=== PATIENT | female | born 2000 ===

== ENCOUNTER 2020-01-04 20:28 | Inpatient (IN) | payer OTHER ==
[~2020-01-04] VITALS: Ht 160 cm; Wt 59.0 kg
[2020-01-07] MEDS ORDERED: LEVO-T25 MCG PO (08:04)
[2020-01-07] MEDS ORDERED: PRENATAL + DHA1 EAC1 PO (08:05)
[2020-01-08] MEDS ORDERED: LEVOTHYROXINE25 MCG PO (08:23)
[2020-01-08] MEDS ORDERED: AMPICILLIN TRI500 MG PO (08:23)
== END 2020-01-08 14:25 | disposition home or self-care (01) | DRG 833 ==
LOC: LDR 20:28
PROVIDERS: ADMIT Specialist; ATTEND Specialist
PROC: BY4CZZZ Ultrasonography of Second Trimester, Single Fetus (ICD-10-PCS; principal; 2020-01-04)
PROC: 4A033R1 Measurement of Arterial Saturation, Peripheral, Percutaneous Approach (ICD-10-PCS; 2020-01-04)
PROC: 4A1HXCZ Monitoring of Products of Conception, Cardiac Rate, External Approach (ICD-10-PCS; 2020-01-04)
PROC: 8E0ZXY6 Isolation (ICD-10-PCS; 2020-01-04)
DX: O26.892 Other specified pregnancy related conditions, second trimester (principal); J02.9 Acute pharyngitis, unspecified; J06.9 Acute upper respiratory infection, unspecified; R50.9 Fever, unspecified; Z03.818 Encounter for observation for suspected exposure to other biological agents ruled out; Z3A.24 24 weeks gestation of pregnancy

== ENCOUNTER 2020-02-01 10:04 | Outpatient (CLI) | payer OTHER ==
[~2020-02-01 10:04] MED LIST: AMPICILLIN TRI500 MG PO; LEVO-T25 MCG PO; LEVOTHYROXINE25 MCG PO; PRENATAL + DHA1 EAC1 PO
== END 2020-02-01 11:45 | disposition home or self-care (01) ==
LOC: NST 10:04
PROVIDERS: ATTEND Specialist
DX: Z34.83 Encounter for supervision of other normal pregnancy, third trimester (principal)

== ENCOUNTER 2020-04-08 19:04 | Inpatient (IN) | payer OTHER ==
[~2020-04-08] VITALS: Ht 160 cm; Wt 2.7 kg
[2020-04-12] MEDS ORDERED: NAPR500T14 PO (08:25)
[2020-04-12] MEDS ORDERED: FEOSOL325 MG PO (08:25)
== END 2020-04-12 22:00 | disposition home or self-care (01) | DRG 788 ==
LOC: LDR 19:04 → O/R 19:04 → OB/GYN 19:04 → O/R 04-09 08:30 → OB/GYN 04-09 13:10
PROVIDERS: ADMIT Specialist; ATTEND Specialist
PROC: 4A0HXFZ Measurement of Products of Conception, Cardiac Rhythm, External Approach (ICD-10-PCS; 2020-04-08)
PROC: 10D00Z1 Extraction of Products of Conception, Low, Open Approach (ICD-10-PCS; principal; 2020-04-09 07:00)
DX: O64.8XX0 Obstructed labor due to other malposition and malpresentation, not applicable or unspecified (principal); Z3A.38 38 weeks gestation of pregnancy; Z37.0 Single live birth; Z20.828 Contact with and (suspected) exposure to other viral communicable diseases